=== PATIENT | male | born 1965 | race Caucasian/White ===

== ENCOUNTER 2018-03-13 09:28 | Emergency (ER) | payer MEDICAID, BC ==
[2018-03-13] MEDS ORDERED: Albuterol-Ipratrop 3 mg / 0.5 (3 ml) UD IH STA (09:57)
[2018-03-13] MEDS ORDERED: Sodium Chloride 0.9% 500 ML IV STA (09:57)
[2018-03-13] MEDS ORDERED: Albuterol-Ipratrop 3 mg / 0.5 (3 ml) UD ONE (10:01)
[2018-03-13 10:12] LABS: BASO # 0.1 K/uL (0.0-0.2); BASO % 0.9 % (0.0-2.0); EOS # 0.4 K/uL (0.0-0.7); EOS % 6.9 % (0.0-4.0); HEMOGLOBIN 13.4 g/dL (12.0-18.0); LYMPH # 1.9 K/uL (1.0-4.3); LYMPH % 33.2 % (20.0-40.0); MEAN CELL VOLUME 84.1 fl (80.0-94.0); MEAN CORPUSCULAR HEMOGLOBIN 28.8 pg (27.0-31.0); MEAN CORPUSCULAR HGB CONC 34.3 g/dL (33.0-37.0); MEAN PLATELET VOLUME 8.9 fl (7.2-11.7); MONO # 0.5 K/uL (0.0-0.8); MONO % 9.5 % (0.0-10.0); NEUT # 2.8 K/uL (1.8-7.0); NEUT % 49.5 % (50.0-75.0); NRBC % 0.1 % (0.0-0.0); RBC 4.64 Mil/uL (4.40-5.90); RED CELL DISTRIBUTION WIDTH 14.3 % (11.5-14.5); WHITE BLOOD COUNT 5.7 K/uL (4.8-10.8)
[2018-03-13 10:18] LABS: PARTIAL THROMBOPLASTIN TIME 29.4 Seconds (25.6-37.1); PROTHROMBIN TIME 10.6 Seconds (9.8-13.1)
[2018-03-13 10:26] LABS: ALB/GLOB RATIO 1.2 (1.0-2.1); ALT/SGPT 39 U/L (21-72); AST/SGOT 43 U/L (17-59); BLOOD UREA NITROGEN 16 mg/dl (9-20); CALCIUM 9.5 mg/dL (8.4-10.2); GFR NON-AFRICAN AMERICAN > 60
--- NOTE | 2018-03-13 10:31 | ED PDOC ---
HPI: SOB/CHF/COPD Time Seen by Provider: 03/13/18 09:38 Chief Complaint (Nursing): Shortness Of Breath Chief Complaint (Provider): Shortness Of Breath History Per: Patient History/Exam Limitations: no limitations Onset/Duration Of Symptoms: Sudden Onset Current Symptoms Are (Timing): Better Additional Complaint(s): 52 year old male with medical history of hypertension, hypercholesterolemia and border-line diabetes, presents to the emergency department for an evaluation of shortness of breath. Patient states he was riding the train then suddenly felt difficulty breathing, dizziness and general weakness prior to arrival. He also reports having felt well before symptoms began. He denies any chest pain, leg pain, nausea, vomiting, diarrhea, headache, numbness, abdominal pain, runny nose , cough or experiencing prior episodes in the past. No long distance travel or hormone use. PMD: Dr. Hiram Stone Past Medical History Reviewed: Historical Data, Nursing Documentation, Vital Signs Vital Signs: Last Vital Signs Temp 98.1 F 03/13/18 09:45 Pulse 72 03/13/18 09:45 Resp 19 03/13/18 09:56 BP 133/75 03/13/18 09:45 Pulse Ox 100 03/13/18 11:17 - Medical History PMH: Diabetes (borderline), HTN, Hypercholesterolemia Denies: Chronic Kidney Disease - Surgical History Surgical History: Coronary Stent (4) Other surgeries: 4 stents - Family History Family History: States: Unknown Family Hx - Social History Current smoker - smoking cessation education provided: No Ex-Smoker (has not smoked in the last 12 months): No Alcohol: Social Drugs: Denies - Home Medications Home Medications: Ambulatory Orders Medication Instructions Recorded Ascorbate Calcium [Calcium 600 mg PO DAILY 03/13/18 Ascorbate] Aspirin [Aspirin Chewable] 81 mg PO DAILY 03/13/18 Atorvastatin [Lipitor] 80 mg PO DAILY 03/13/18 Carvedilol [Coreg] 6.25 mg PO BID 03/13/18 Clopidogrel [Plavix] 75 mg PO DAILY 03/13/18 Cyanocobalamin (Vitamin B-12) 1,000 mg PO DAILY 03/13/18 [B-12] Enalapril Maleate [Vasotec] 2.5 mg PO BID 03/13/18 Fenofibrate,Micronized 134 mg PO TID 06/24/18 [Fenofibrate] Folic Acid [Folic Acid] 1 mg PO DAILY 03/13/18 - Allergies Allergies/Adverse Reactions: Allergies Allergy/AdvReac Type Severity Reaction Status Date / Time No Known Allergies Allergy Verified 03/13/18 09:45 Review of Systems ROS Statement: Except As Marked, All Systems Reviewed And Found Negative Constitutional: Positive for: Weakness ENT: Negative for: Nose Discharge, Nose Congestion Cardiovascular: Negative for: Chest Pain Respiratory: Positive for: Shortness of Breath. Negative for: Cough Gastrointestinal: Negative for: Nausea, Vomiting, Abdominal Pain, Diarrhea Musculoskeletal: Negative for: Leg Pain (bilaterally) Neurological: Positive for: Dizziness. Negative for: Numbness, Headache Physical Exam - Reviewed Nursing Documentation Reviewed: Yes Vital Signs Reviewed: Yes - Physical Exam Appears: Positive for: Non-toxic, No Acute Distress Head Exam: Positive for: ATRAUMATIC, NORMAL INSPECTION, NORMOCEPHALIC Skin: Positive for: Normal Color Eye Exam: Positive for: Normal appearance ENT: Positive for: Nasal Congestion Neck: Positive for: Normal, Painless ROM, Supple Cardiovascular/Chest: Positive for: Regular Rate, Rhythm. Negative for: Murmur Respiratory: Positive for: Decreased Breath Sounds (mild). Negative for: Accessory Muscle Use, Wheezing, Respiratory Distress Gastrointestinal/Abdominal: Positive for: Normal Exam, Soft. Negative for: Tenderness Back: Positive for: Normal Inspection. Negative for: L CVA Tenderness, R CVA Tenderness Extremity: Positive for: Normal ROM (upper/lower). Negative for: Tenderness, Pedal Edema (bilateral) Neurologic/Psych: Positive for: Alert, power project manager II-XII, Oriented. Negative for: Motor/Sensory Deficits, Aphasia - Laboratory Results Result Diagrams: 03/13/18 10:05 03/13/18 10:05 Interpretation Of Abn Labs: no acute - ECG ECG: Positive for: Interpreted By Me, Viewed By Me ECG Rhythm: Positive for: Normal QRS, Normal ST Segment, Sinus Rhythm Interpretation Of Abn EKG: q wave septal O2 Sat by Pulse Oximetry: 100 (RA) Pulse Ox Interpretation: Normal - Radiology X-Ray: Interpreted by Me, Viewed By Me X-Ray Interpretation: No Acute Disease - Progress ED Course And Treament: 1209: Stable. Family at bedside. Clarified the story. Pt. is actually complaining of nasal congestion and since the nose is clogged he is having trouble breathing from it. He has no trouble getting air or breathing from the mouth. No pain. Has been having this issue for 2 months and seen by ENT and primary. They are still working him up and could be allergy. Pt. saw cook vacuum kettle 2 days ago and was cleared. Wants to go home. Is pain free. No shortness of breath. AAOx3. Medical Decision Making Medical Decision Making: Initial Impression: Near-syncope Initial Plan: * EKG * BNP * CMP * Troponin I * CBC * PTT * PT * CXR * Glucose, POC * Duoneb 3ml INH * NS 500ml IV per 100mls/hr Scribe Attestation: Documented by Yessi Jj, acting as a scribe for Rich Spears MD. Provider Scribe Attestation: All medical record entries made by the Scribe were at my direction and personally dictated by me. I have reviewed the chart and agree that the record accurately reflects my personal performance of the history, physical exam, medical decision making, and the department course for this patient. I have also personally directed, reviewed, and agree with the discharge instructions and disposition. Disposition - Clinical Impression Clinical Impression: Nasal congestion - Patient ED Disposition Is Patient to be Admitted: No Counseled Patient/Family Regarding: Studies Performed, Diagnosis, Need For Followup - Disposition Referrals: [facility] [Outside] - 03/14/18 Disposition: Routine/Home Disposition Time: 12:12 Condition: STABLE Additional Instructions: Return if not better in 3 days. Instructions: Cough, Runny Nose, and the Common Cold (DC) Forms: [employer] (Cro[place]ian), [facility] ED School/Work Excuse
[2018-03-13 10:38] LABS: B-TYPE NATRIURETIC PEPTIDE 65.9 pg/ml (0-900)
--- NOTE | 2018-03-13 11:17 | CARD ---
APPROVED REPORT EKG Measurement Heart [id number] <Conclusion> Normal sinus rhythm Septal infarct, age undetermined Abnormal ECG
[2018-03-13 12:43] VITALS: BP 131/79; PULSE 83; RESP 15; TEMP 98.8; O2SAT 98
--- NOTE | 2018-03-13 16:19 | RAD ---
HISTORY: dyspnea COMPARISON: No prior. FINDINGS: LUNGS: No active pulmonary disease. PLEURA: No significant pleural effusion identified, no pneumothorax apparent. CARDIOVASCULAR: Cardiac silhouette appears somewhat prominent and there is no pulmonary vascular congestion evident. Frontal technique at least in part magnifies the cardiac silhouette. OSSEOUS STRUCTURES: No significant abnormalities. VISUALIZED UPPER ABDOMEN: Normal. OTHER FINDINGS: None. IMPRESSION: Cardiac silhouette appears somewhat prominent and is technically magnified at least in part. No pulmonary congestion. No acute pulmonary disease appreciable bilaterally.
== END 2018-03-13 12:41 | disposition home or self-care (01) ==
LOC: H.ER 09:28
DX: R09.81 Nasal congestion (principal); R06.02 Shortness of breath; E11.9 Type 2 diabetes mellitus without complications; E78.00 Pure hypercholesterolemia, unspecified; I10 Essential (primary) hypertension; Z79.82 Long term (current) use of aspirin; Z95.5 Presence of coronary angioplasty implant and graft
CPT/HCPCS: 71045; 80053; 82948; 83880; 84484; 85025; 85610; 85730; 93005; 94150; 94640; 96360; 99285; J7040